=== PATIENT | male | born 1990 | race Two or more races ===

== ENCOUNTER 2021-02-28 03:05 | Emergency (ER) | payer OTHER ==
[~2021-02-28] VITALS: Ht 185.4 cm; Wt 111.1 kg
[2021-02-28 03:05] VITALS: BP 164/77
== END 2021-02-28 04:00 ==
LOC: ER 03:09
DX: Z02.89 Encounter for other administrative examinations (principal); R51.9 Headache, unspecified; Z20.822 Contact with and (suspected) exposure to COVID-19; R03.0 Elevated blood-pressure reading, without diagnosis of hypertension
CPT/HCPCS: 87426; 99283; C9803